=== PATIENT | female | born 1970 | race Caucasian/White ===

== ENCOUNTER 2016-09-15 21:45 | Emergency (ER) | payer OTHER ==
[~2016-09-15] VITALS: Ht 170.2 cm; Wt 81.6 kg
[~2016-09-15 21:45] MED LIST: CETI10TA22 PO; HYDR-2666 PO; IBUP200T43 PO; NAPR500T8 PO
[2016-09-15 21:54] VITALS: BP 143/82
--- NOTE | 2016-09-15 22:03 | PHYS DOC ---
General Chief Complaint: EARACHE/EAR PAIN Stated Complaint: EARACHE Time Seen by MD: 21:47 Source: patient Exam Limitations: no limitations Problems: History of Present Illness Initial Comments Pt is 46/F to ED c/o L ear pain. Pt states L ear pain x few days. She's had popping, muffled hearing, no drainage. Pain described as pressure, moderate, no fever/chills/dizziness/ tinnitus. Taking OTC meds for allergies, has had increase nasal drainage/ congestion and scratchy throat. No fever/chills/diaphoresis/myalgias/neck stiffness/CONTRERAS/focal weakness. OTC not helping. Timing/Duration: gradual, other Severity: moderate Location: ear (R) Prearrival Treatment: over the counter meds Modifying Factors: worse with coughing, improves with rest Associated Symptoms: change in hearing, cough, nasal congestion/drainage Allergies: Coded Allergies: bee venom (honey bee) (Verified Allergy, Severe, SOA, Dizziness, 03/30/14) Past Medical History Medical History: allergies Surgical History: noncontributory, appendectomy, cholecystectomy, tonsillectomy , other Family History Significant Family History: no pertinent family hx Social History Smoker: cigarettes Alcohol: occasionally Drugs: none Constitutional: denies chills, denies fever Ears: see HPI Nose: see HPI congestiondenies epistaxis Throat: see HPIdenies neck stiffness, denies hoarse, denies painful swallowing Respiratory: coughdenies shortness of breath, denies wheezing Cardiovascular: denies chest pain, denies palpitations, denies syncope Gastrointestinal: denies abdominal pain, denies nausea, denies vomiting Physical Exam General Appearance: WD/WN, no apparent distress Eyes: bilateral eye EOMI, bilateral eye PERRL, bilateral eye normal inspection Ears: right ear TM normal, right ear canal normal, left ear other (L canal erythema and pain w/auricular movement, TM w/serous fluid no erythema R ear normal), bilateral ear auricle normal Mouth/Throat: normal mouth inspection, other (clear PND) Neck: non-tender, supple Cardiovascular/Respiratory: normal peripheral pulses, no respiratory distress Neurologic/Psychiatric: plate grainer II-XII nml as tested, no motor/sensory deficits, alert, normal mood/affect, oriented x 3 Skin: normal color, warm/dry Departure Time of Disposition: 22:01 Disposition: 01 HOME, SELF-CARE Diagnosis: L serous otitis media, L external otitis media Condition: GOOD Patient Instructions: Otitis Externa, [id number]-mg-Lsof, Serous Otitis Media, Smoking Cessation Additional Instructions: Stop smoking, seek medical assistance if necessary. Continue current meds. OTC tylenol as needed. Rx: prednisone, floxin otic, take as directed. Follow up with your doctor in 7-10 days for recheck. Return to ED with new or changing symptoms. WALTER PALACIOS DO Sep 15, 2016 22:03
[2016-09-15] MEDS ORDERED: PRED20TA PO (22:05)
[2016-09-15] MEDS ORDERED: OFLO10DR21 AS (22:05)
[2016-09-15] MEDS ORDERED: OFLOXACIN 0.3% OTIC SOLUTION 5ML BOTTLE. AS ONE (22:15)
[2016-09-15] MEDS ORDERED: PREDNISONE 20 MG TABLET PO ONE (22:15)
== END 2016-09-15 22:15 | disposition home or self-care (01) ==
LOC: ER 21:45
DX: H65.92 Unspecified nonsuppurative otitis media, left ear (principal); H60.8X2 Other otitis externa, left ear; F17.210 Nicotine dependence, cigarettes, uncomplicated; R09.81 Nasal congestion; Z91.030 Bee allergy status
CPT/HCPCS: 99283; J7512

== ENCOUNTER 2016-11-25 08:37 | Emergency (ER) | payer OTHER ==
[~2016-11-25 08:37] MED LIST changes: -HYDR-2666 PO; +HYDR-2758 PO; +OFLO10DR21 AS; +PRED20TA PO
--- NOTE | 2016-11-25 09:20 | RAD ---
Left ankle, 3 views, 11/25/2016: History: Injury, pain No fracture or dislocation is identified. There is mild soft tissue swelling. IMPRESSION: No acute bony abnormality is detected.
--- NOTE | 2016-11-25 09:21 | RAD ---
Left foot, 3 views, 11/25/2016: History: Injury, pain No fracture or dislocation is identified. There is mild subcutaneous edema. IMPRESSION: No acute bony abnormality is detected.
--- NOTE | 2016-11-25 09:40 | PHYS DOC ---
General Chief Complaint: ANKLE PROBLEM Stated Complaint: FOOT INJURY Time Seen by MD: 08:53 Source: patient Exam Limitations: no limitations Problems: History of Present Illness Initial Comments Pt is 46/F to ED c/o left foot/ankle pain. Pt states yesterday afternoon stepped "wrong" and left ankle twisted inversion mechanism. Pt with h/o L knee surgery, tried to avoid twisting her knee successfully and fell to flexed right knee causing abrasion. No care sough for abrasion, pt c/o left lateral ankle pain. Able to walk with discomfort, OTC meds helping but wants to r/o fx. No other injury from fall, no numbness/tingling/weakness/radiating sx. Onset: yesterday Severity: moderate Pain/Injury Location: left foot, left ankle Method of Injury: twisted Modifying Factors: worse with jarring, worse with movement, improves with rest Allergies: Coded Allergies: bee venom (honey bee) (Verified Allergy, Severe, SOA, Dizziness, 03/30/14) Past Medical History Medical History: arthritis Surgical History: noncontributory, appendectomy, cholecystectomy, tonsillectomy , other Family History Significant Family History: no pertinent family hx Social History Smoker: cigarettes Alcohol: occasionally Drugs: none Review of Systems Constitutional: denies chills, denies fever Respiratory: denies cough, denies orthopnea Cardiovascular: denies chest pain, denies palpitations Gastrointestinal: denies nausea, denies vomiting Musculoskeletal: see HPI Skin: denies change in color, denies dryness, denies lesions Psychiatric/Neurological: see HPI Physical Exam General Appearance: WD/WN, no apparent distress HEENT: normal ENT inspection Neck: non-tender, supple Cardiovascular/Respiratory: normal peripheral pulses, no respiratory distress Knees: bilateral knee non-tender, bilateral knee normal inspection (scar L knee c/w history, small R knee abrasion scabbed), bilateral knee normal range of motion, bilateral knee no evidence of injury Ankles: left ankle limited range of motion, left ankle pain, left ankle soft tissue tenderness Feet: left foot limited range of motion, left foot pain, left foot soft tissue tenderness Neurologic/Tendon: normal sensation, normal motor functions, normal tendon functions, responds to pain, no evidence tendon injury Psychiatric: alert, oriented x 3 Skin: normal color, warm/dry Orders, Labs, Meds L Foot, L Ankle: Images reviewed by me, no acute osseous abnormality. NV after splint placed. Departure: Impression: Primary Impression: Ankle sprain Disposition: HOME, SELF-CARE Condition: GOOD Patient Instructions: VIOLET - Routine Care for Injuries, [id number] Additional Instructions: VIOLET, see handout. NWB Crutches only until cleared by your doctor. Wear splint as needed. OTC tylenol/ibuprofen as needed. Off work thru 11/27. Follow up at [facility] or for recheck. Return to ED with new or changing symptoms. Departure Time of Disposition: 09:37 Diagnosis: Left lateral ankle sprain WALTER PALACIOS DO November 25, 2016 09:40
[2016-11-25 09:55] VITALS: BP 141/91
== END 2016-11-25 09:55 | disposition home or self-care (01) ==
LOC: ER 08:37
DX: S93.402A Sprain of unspecified ligament of left ankle, initial encounter (principal); M19.90 Unspecified osteoarthritis, unspecified site; F17.210 Nicotine dependence, cigarettes, uncomplicated; Z91.030 Bee allergy status; X50.9XXA Other and unspecified overexertion or strenuous movements or postures, initial encounter; Y93.89 Activity, other specified; Y99.8 Other external cause status; Y92.89 Other specified places as the place of occurrence of the external cause
CPT/HCPCS: 29515; 73610; 73630; 99284-25

== ENCOUNTER → 2019-05-22 | Outpatient (CLI) | payer OTHER ==
[~2019-05-22] MED LIST changes: +HYDR-2155 PO; -HYDR-2758 PO; -IBUP200T43 PO; +IBUP200T44 PO
--- NOTE | 2019-05-22 15:20 | RAD ---
SMALL BOWEL SERIES 05/22/2019. Reason for study: Ulcerative colitis. Comparison studies: None. Technique: Preliminary dry kiln feeder film of the abdomen was obtained. Then following ingestion of oral barium, serial images of the abdomen were obtained to assess progress of contrast throughout the small bowel. Once the contrast reached the colon, bilateral oblique views were obtained the better assess the terminal ileum. Findings: Cholecystectomy changes are present. Transit time through the small bowel is normal. No evidence for bowel obstruction or dilatation. Jejunal and ileal fold patterns are normal with no evidence for inflammatory bowel disease. The terminal ileum was unremarkable. Few colonic diverticula are present. IMPRESSION: No bowel obstruction or inflammation visualized. There is persistent clinical concern, further evaluation with CT enterography may be of benefit. Few mild colonic diverticula. Electronically signed by: Gissell Guthrie MD (05/22/2019 3:17 PM) [id number]
== END | disposition home or self-care (01) ==
LOC: RAD 08:31
PROVIDERS: ATTEND Internal Medicine Gastroenterology
DX: K57.30 Diverticulosis of large intestine without perforation or abscess without bleeding (principal); K51.90 Ulcerative colitis, unspecified, without complications; Z90.49 Acquired absence of other specified parts of digestive tract
CPT/HCPCS: 74250

== ENCOUNTER 2019-11-22 23:53 | Emergency (ER) | payer OTHER ==
[~2019-11-22] VITALS: Ht 170.2 cm; Wt 84.0 kg
[2019-11-22 23:53] VITALS: BP 128/85
[~2019-11-22 23:53] MED LIST changes: -CETI10TA22 PO; +CETI10TA24 PO
[2019-11-23] MEDS ORDERED: CLIN300C8 PO (00:09)
[2019-11-23] MEDS ORDERED: PRED20TA PO (00:09)
--- NOTE | 2019-11-23 00:09 | PHYS DOC ---
Past History Past Medical History: Arthritis Past Surgical History: Appendectomy, Cholecystectomy, Hysterectomy, Tonsillectomy, Other Smoking: Cigarettes, Less than 1pk/day Alcohol Use: Occasionally Drug Use: None General Adult EDM: Chief Complaint: INSECT BITE HPI: HPI: 49-year-old female presents with report of 3-day history of progressive swelling and redness to insect bite to left anterior forearm. Patient reports initially felt like she was bit by a "small styles gnat ". Patient subsequently put a [employer] [place] around the swelling this morning but tonight it has progressed. Reports she was previously prescribed Keflex and has thus far taken 2 doses. Denies fever or chills. Reports some clear discharge from wound. Patient does report having allergy to insect bites and stings. Denies airway compromise. Review of Systems: Review of Systems: Constitutional: Denies fever or chills Eyes: Denies redness or eye pain HENT: Denies nasal congestion or sore throat Respiratory: Denies cough or shortness of breath Cardiovascular: Denies chest pain or palpitations GI: Denies abdominal pain, nausea, or vomiting : Denies dysuria or hematuria Musculoskeletal: Denies back pain or joint pain Integument: Reports redness and swelling to right forearm Neurologic: Denies headache, focal weakness or sensory changes Complete systems were reviewed and found to be within normal limits, except as documented in this note. Allergies: Allergies: Allergies Coded Allergies Type Severity Reaction Last Updated Verified bee venom (honey bee) Allergy Severe SOA, Dizziness 03/30/14 Yes Physical Exam: PE: Constitutional: Well developed, well nourished, no acute distress, non-toxic appearance HENT: Normocephalic, atraumatic Eyes:Conjunctiva normal, no discharge Neck: Normal range of motion, no tenderness, supple Cardiovascular: Left radial pulse +2, cap refill less than 2 seconds on right hand Lungs & Thorax: No respiratory distress, equal chest rise and fall Skin: Warm, dry, no erythema, no rash, lesion as avof Extremities: Left anterior forearm with tenderness and induration to wound on anterior aspect with surrounding erythema Neurologic: Alert and oriented X 3, no focal deficits noted Psychologic: Affect normal, judgment normal EKG: EKG: [] Radiology/Procedures: Radiology/Procedures: [] Course & Med Decision Making: Course & Med Decision Making Patient presents with insect bite to left anterior forearm with surrounding erythema and central induration. Tetanus up-to-date. Afebrile. Empiric anti biotic initiated to replace previously prescribed Keflex. Wound cleaned and dressed. Patient stable for discharge with outpatient follow-up with PCP. Discussed findings and plan with patient, who acknowledges understanding and agreement. Bernie Disclaimer: Bernie Disclaimer: This electronic medical record was generated, in whole or in part, using a voice recognition dictation system. Departure Departure: Impression: Primary Impression: Insect bite Qualified Codes: S50.862D - Insect bite (nonvenomous) of left forearm, subsequent encounter; W57.XXXD - Bitten or stung by nonvenomous insect and other nonvenomous arthropods, subsequent encounter Disposition: HOME/RESIDENCE PRIOR TO ADM Condition: STABLE Referrals: TIRSO SCRUGGS (PCP) Patient Instructions: Insect Bite, [id number] Additional Instructions: Do not soak your wound. You may shower. Clean wound daily with soap and water. Change dressing 2 times daily. Use over the counter antibiotic ointment with each dressing change. Scripts Clindamycin Hcl (CLINDAMYCIN HCL) 300 Mg Capsule 1 CAP PO TID for infection for 7 Days, #21 CAP Prov: SANDEEP ROMANO DO 11/23/19 Prednisone (PREDNISONE) 20 Mg Tablet 2 TAB PO DAILY for Insect bite, #8 TAB Prov: SANDEEP ROMANO DO 11/23/19 SANDEEP ROMANO DO November 23, 2019 00:09
[2019-11-23] MEDS ORDERED: DEXAMETHASONE 4 MG TABLET PO ONE (00:15)
[2019-11-23] MEDS ORDERED: NEOMY/BACITR/POLYMYXIN OINT PACKET. TP ONE (00:15)
[2019-11-23] MEDS ORDERED: CLINDAMYCIN HCL 150 MG CAPSULE PO ONE (00:15)
== END 2019-11-23 00:15 | disposition home or self-care (01) ==
LOC: ER 23:53
DX: S50.862A Insect bite (nonvenomous) of left forearm, initial encounter (principal); M19.90 Unspecified osteoarthritis, unspecified site; F17.210 Nicotine dependence, cigarettes, uncomplicated; Z91.030 Bee allergy status; W57.XXXA Bitten or stung by nonvenomous insect and other nonvenomous arthropods, initial encounter; Y93.89 Activity, other specified; Y92.89 Other specified places as the place of occurrence of the external cause; Y99.8 Other external cause status
CPT/HCPCS: 99284; J8540

== ENCOUNTER 2020-02-17 19:04 | Emergency (ER) | payer OTHER ==
[~2020-02-17] VITALS: Ht 170.2 cm; Wt 86.6 kg
[~2020-02-17 19:04] MED LIST changes: +CLIN300C8 PO
[2020-02-17 19:25] VITALS: BP 142/86
[2020-02-17] MEDS ORDERED: KETOROLAC 60 MG/2 ML VIAL. IM ONE (19:30)
[2020-02-17 19:55] LABS: BILIRUBIN,URINE NEG (NEG); CLARITY,URINE CLEAR; COLOR,URINE YELLOW; GLUCOSE,URINE NEG (NEG)
[2020-02-17 19:56] LABS: BACTERIA,URINE 0 /HPF (0-FEW); NITRITE,URINE NEG (NEG); RBC,URINE OCC /HPF (0-2); SQUAMOUS EPITHELIAL CELL,UR FEW /LPF; UROBILINOGEN,URINE 0.2 mg/dL (0.2 mg/dL); WBC,URINE OCC /HPF (0-4)
--- NOTE | 2020-02-17 19:59 | RAD ---
CT scan of the lumbar spine without contrast 02/17/2020 CLINICAL HISTORY: Low back pain. Left leg numbness. TECHNIQUE: Unenhanced, contiguous, 0.625 mm axial sections were obtained through the lumbar spine. 3 mm reconstructed sagittal, axial and coronal images were obtained. One or more of the following individualized dose reduction techniques were utilized for this study: 1. Automated exposure control. 2. Adjustment of the mA and/or kV according to patient size. 3. Use of iterative reconstruction technique. FINDINGS: Sagittal and coronal reconstructed images demonstrate very mild S-shaped curvature of the thoracolumbar spine. Degenerative changes consisting of varying degrees of disc space narrowing, vertebral endplate sclerosis and minimal to mild anterior and posterior vertebral body osteophyte formation are seen. No fracture or subluxation of the lumbar vertebrae is noted. On the axial images throughout the lumbar disc spaces the changes of degenerative disc disease are seen. These consist of mild to moderate generalized disc bulges, degenerative changes involving the facet joints and mild to moderate ligamentum flavum hypertrophy. These findings when combined result in mild central spinal canal stenosis at L2-3 and L4-5. Mild to moderate central spinal canal stenosis is seen at L3-4. Mild bilateral neural foraminal stenosis is seen at L2-3 and L4-5. IMPRESSION: The changes of degenerative disc disease are seen throughout the lumbar spine. These findings result in mild central spinal canal stenosis with mild bilateral neural foraminal stenosis at L2-3 and L4-5 and mild to moderate central spinal canal stenosis at L3-4. No acute osseous abnormality is seen. Electronically signed by: Soham Wiggins MD (02/17/2020 7:56 PM) [id number]
[2020-02-17] MEDS ORDERED: TRAM50TA PO (20:43)
--- NOTE | 2020-02-17 20:43 | PHYS DOC ---
Past History Past Medical History: Arthritis Past Surgical History: Appendectomy, Cholecystectomy, , Hysterectomy, Knee Replacement, Tonsillectomy, Other Additional Past Surgical Histo: hip, knee surgeries, carpal tunnel raymundo, tummy tuck, lt knee replaced x2 Smoking: Cigarettes, Less than 1pk/day Alcohol Use: Occasionally Drug Use: None General Adult EDM: Chief Complaint: OTHER COMPLAINTS HPI: HPI: Patient is a 49 year old female who presents for evaluation of left leg pain and numbness. She also felt some paresthesia "prickly sensation" in that leg as well. She states she has a "nerve problem" that starts in her back and radiates down her leg. Patient was complaining of symptoms progressing over the past 4 days. Patient denies any injury or trauma. Patient has history of chronic osteoarthritis. Patient has had similar symptoms but not as severe in the past. Patient denied loss of bowel bladder control, footdrop or saddle anesthesia Review of Systems: Review of Systems: Constitutional: Denies fever or chills Eyes: Denies change in visual acuity HENT: Denies nasal congestion or sore throat Respiratory: Denies cough or shortness of breath Cardiovascular: Denies chest pain or edema GI: Denies abdominal pain, nausea, vomiting, bloody stools or diarrhea : Denies dysuria Musculoskeletal: lower back pain no joint pain Integument: Denies rash Neurologic: Denies headache, focal weakness or sensory changes Endocrine: Denies polyuria or polydipsia Lymphatic: Denies swollen glands Psychiatric: Denies depression or anxiety Heart Score: Risk Factors: Risk Factors: DM, Current or recent (<one month) smoker, HTN, HLP, family history of CAD, obesity. Risk Scores: Score 0 - 3: 2.5% MACE over next 6 weeks - Discharge Home Score 4 - 6: 20.3% MACE over next 6 weeks - Admit for Clinical Observation Score 7 - 10: 72.7% MACE over next 6 weeks - Early Invasive Strategies Current Medications: Current Meds: Current Medications Medications (Trade) Dose Ordered Sig/Maya Start Time Stop Time Status Last Admin Dose Admin Ketorolac Tromethamine (Toradol Im) 30 mg 1X ONCE 02/17/20 19:30 02/17/20 19:31 DC Allergies: Allergies: Allergies Coded Allergies Type Severity Reaction Last Updated Verified venom-honey bee Allergy Severe SOA, Dizziness 02/17/20 Yes Physical Exam: PE: Constitutional: Well developed, well nourished, mild acute distress, non-toxic appearance. [] HENT: Normocephalic, atraumatic, bilateral external ears normal, oropharynx moist, no oral exudates, nose normal. [] Eyes: PERRL, EOMI, conjunctiva normal. [] Neck: Normal range of motion, no tenderness, supple, no stridor. [] Cardiovascular:Heart rate regular rhythm, no murmur [] Lungs & Thorax: Bilateral breath sounds clear to auscultation [] Abdomen: Bowel sounds normal, soft, no tenderness. [] Skin: Warm, dry, no erythema, no rash. [] Back: paraspinal tenderness low back, no CVA tenderness. [] Extremities: mild left lateral leg tenderness, no cyanosis, no clubbing, ROM intact, no edema, no calf tenderness. [] Neurologic: Alert and oriented X 3, normal motor function, normal sensory function, no focal deficits noted, no hyperreflexia lower extremities [] Psychologic: Affect normal, judgement normal, mood normal. [] Current Patient Data: Labs: Laboratory Tests Test 02/17/20 19:28 Urine Collection Type Void Urine Color Yellow Urine Clarity Clear Urine pH 7.0 Urine Specific [place] 1.020 Urine Protein Neg (NEG-TRACE) Urine Glucose (UA) Neg mg/dL (NEG) Urine Ketones (Stick) Neg mg/dL (NEG) Urine Blood Neg (NEG) Urine Nitrite Neg (NEG) Urine Bilirubin Neg (NEG) Urine Urobilinogen Dipstick 0.2 mg/dL (0.2 mg/dL) Urine Leukocyte Esterase Neg (NEG) Urine RBC Occ /HPF (0-2) Urine WBC Occ /HPF (0-4) Urine Squamous Epithelial Cells Few /LPF Urine Bacteria 0 /HPF (0-FEW) Vital Signs: Vital Signs Date Time Temp Pulse Resp B/P (MAP) Pulse Ox O2 Delivery O2 Flow Rate FiO2 02/17/20 19:25 98.0 89 18 142/86 (104) 97 Room Air EKG: EKG: [] Radiology/Procedures: Radiology/Procedures: [[address] [address] IMAGING REPORT Signed PATIENT: TAWANA DIEHL ACCOUNT: [id number] : 1970 LOCATION: ER AGE: 49 SEX: F EXAM STATUS: REG ER ORD. PHYSICIAN: MARBIN DUBON DO REASON: low back pain, left leg numbness/pain PROCEDURE: CT LUMBAR SPINE WO CONTRAST CT scan of the lumbar spine without contrast 02/17/2020 CLINICAL HISTORY: Low back pain. Left leg numbness. TECHNIQUE: Unenhanced, contiguous, 0.625 mm axial sections were obtained through the lumbar spine. 3 mm reconstructed sagittal, axial and coronal images were obtained. One or more of the following individualized dose reduction techniques were utilized for this study: 1. Automated exposure control. 2. Adjustment of the mA and/or kV according to patient size. 3. Use of iterative reconstruction technique. FINDINGS: Sagittal and coronal reconstructed images demonstrate very mild S-shaped curvature of the thoracolumbar spine. Degenerative changes consisting of varying degrees of disc space narrowing, vertebral endplate sclerosis and minimal to mild anterior and posterior vertebral body osteophyte formation are seen. No fracture or subluxation of the lumbar vertebrae is noted. On the axial images throughout the lumbar disc spaces the changes of degenerative disc disease are seen. These consist of mild to moderate generalized disc bulges, degenerative changes involving the facet joints and mild to moderate ligamentum flavum hypertrophy. These findings when combined result in mild central spinal canal stenosis at L2-3 and L4-5. Mild to moderate central spinal canal stenosis is seen at L3-4. Mild bilateral neural foraminal stenosis is seen at L2-3 and L4-5. IMPRESSION: The changes of degenerative disc disease are seen throughout the lumbar spine. These findings result in mild central spinal canal stenosis with mild bilateral neural foraminal stenosis at L2-3 and L4-5 and mild to moderate central spinal canal stenosis at L3-4. No acute osseous abnormality is seen. Electronically signed by: Soham Wiggins MD (02/17/2020 7:56 PM) [id number] DICTATED AND SIGNED BY: SOHAM WIGGINS MD DATE: 02/17/201955 CC: TIRSO SCRUGGS; MARBIN DUBON DO ~ ] Course & Med Decision Making: Course & Med Decision Making Pertinent Labs and Imaging studies reviewed. (See chart for details) [] Dragon Disclaimer: Dragon Disclaimer: This electronic medical record was generated, in whole or in part, using a voice recognition dictation system. 2034 stable, feeling better at this time. Patient already taking ibuprofen. Will add limited number of tramadol pills. Patient has degenerative changes noted to her CT scan lumbar spine. There is no evidence of a cauda equina syndrome at this time. Patient does not have any loss of bowel bladder control, footdrop or saddle anesthesia. Patient has a steady gait. She was advised to see her doctor right away she may need physical therapy regarding her back. She may need more advanced imaging studies such as an MRI Departure Departure: Impression: Primary Impression: Sciatica of left side associated with disorder of lumbosacral spine Disposition: HOME/RESIDENCE PRIOR TO ADM Condition: STABLE Referrals: TIRSO SCRUGGS (PCP) Patient Instructions: Back Pain, Adult, Sciatica Additional Instructions: Rest, no heavy lifting, medication as directed, call and see your doctor right away and follow, return if worsen Scripts Tramadol Hcl (TRAMADOL HCL) 50 Mg Tablet 50 MG PO PRN Q6HRS PRN for PAIN, #14 TAB Prov: MARBIN DUBON DO 02/17/20 Justification of Admission: Justification of Admission: Justification of Admission Dx: N/A MARBIN DUBON DO Feb 17, 2020 20:43
[2020-02-17] MEDS ORDERED: START PACK - traMADol 1 STARTPACK TABLET PO ONE ×2 (21:05→21:30)
== END 2020-02-17 21:15 | disposition home or self-care (01) ==
LOC: ER 19:04
DX: M54.42 Lumbago with sciatica, left side (principal); M51.36 Other intervertebral disc degeneration, lumbar region; M19.90 Unspecified osteoarthritis, unspecified site; F17.210 Nicotine dependence, cigarettes, uncomplicated; Z90.89 Acquired absence of other organs; Z90.49 Acquired absence of other specified parts of digestive tract; Z98.890 Other specified postprocedural states; Z90.710 Acquired absence of both cervix and uterus; Z91.030 Bee allergy status
CPT/HCPCS: 72131; 81001; 96372; 99284; J1885

== ENCOUNTER 2020-03-30 19:24 | Emergency (ER) | payer OTHER ==
[~2020-03-30] VITALS: Ht 170.2 cm; Wt 84.7 kg
[~2020-03-30 19:24] MED LIST changes: -CETI10TA24 PO; +CETI10TA74 PO; +TRAM50TA PO
[2020-03-30] MEDS ORDERED: ONDANSETRON PF 4 MG/2 ML VIAL. IVP ONE (20:00)
[2020-03-30] MEDS ORDERED: IV NORMAL SALINE 1,000ML 1,000 ML IV ONE (20:00)
[2020-03-30 20:34] LABS: BASO % 1 % (0-3); EOS # 0.2 x10^3/uL (0.0-0.7); EOS % 2 % (0-3); HEMATOCRIT 40.1 % (36.0-47.0); HEMOGLOBIN 13.7 g/dL (12.0-15.5); LYMPH # 2.5 x10^3/uL (1.0-4.8); LYMPH % 38 % (24-48); MEAN CORPUSCULAR HEMOGLOBIN 33 pg (25-35); MEAN CORPUSCULAR HGB CONC 34 g/dL (31-37); MEAN CORPUSCULAR VOLUME 96 fL (79-100); MONO # 0.4 x10^3/uL (0.0-1.1); MONO % 6 % (0-9); NEUT # 3.4 x10^3uL (1.8-7.7); NEUT % 53 % (31-73); PLATELET COUNT 210 x10^3/uL (140-400); RED BLOOD COUNT 4.17 x10^6/uL (3.50-5.40); WHITE BLOOD COUNT 6.5 x10^3/uL (4.0-11.0)
[2020-03-30 20:43] LABS: CALCIUM 9.4 mg/dL (8.5-10.1); CREATININE 0.9 mg/dL (0.6-1.0); GFR 66.5; POTASSIUM 3.3 mmol/L (3.5-5.1)
[2020-03-30 20:52] LABS: ALBUMIN 3.7 g/dL (3.4-5.0); TOTAL BILIRUBIN 0.5 mg/dL (0.2-1.0); TOTAL PROTEIN 7.3 g/dL (6.4-8.2)
[2020-03-30 21:30] LABS: BACTERIA,URINE FEW /HPF (0-FEW); BILIRUBIN,URINE NEG (NEG); CLARITY,URINE HAZY; COLOR,URINE YELLOW; GLUCOSE,URINE NEG (NEG); NITRITE,URINE NEG (NEG); RBC,URINE RARE /HPF (0-2); UROBILINOGEN,URINE 0.2 mg/dL (0.2 mg/dL); WBC,URINE OCC /HPF (0-4)
[2020-03-30] MEDS ORDERED: POTASSIUM CHLORIDE 10 MEQ TABLET.ER. PO ONE (21:30)
[2020-03-30] MEDS ORDERED: CONTRAST GIVEN. MC PRN (21:30)
[2020-03-30 21:31] LABS: SQUAMOUS EPITHELIAL CELL,UR FEW /LPF
[2020-03-30] MEDS ORDERED: IOHEXOL 300 MG/ML 75 ML VIAL. IV ONE (22:00)
--- NOTE | 2020-03-30 22:08 | RAD ---
Exam: CT of abdomen and pelvis with contrast INDICATION: Abdominal pain TECHNIQUE: Sequential axial images through the abdomen and pelvis obtained following the administration of 74 mL of Isovue-370 IV contrast. Sagittal and coronal reformatted images were reconstructed from the axial data and reviewed. Comparisons: None FINDINGS: Heart size is normal. No pericardial effusion. Visualized lung bases are clear. No pleural effusion. Liver, spleen, pancreas, and adrenals are unremarkable. Gallbladder surgically absent. No perinephric inflammation or hydronephrosis. No renal or ureteral calculi. Bladder is decompressed not well evaluated. Uterus is absent. No abnormal adnexal mass. Large and small bowel are unremarkable. Appendix is nonidentified. No free intra-abdominal air or fluid. No obstruction. Abdominal aorta has a normal course and caliber. Abdominal vasculature is patent. No enlarged intra-abdominal lymph nodes are identified. No suspicious osseous lesions or acute fractures IMPRESSION: No acute process identified within the abdomen or pelvis. Exposure: One or more of the following in the visualized dose reduction techniques were utilized for this examination: 1. Automated exposure control 2. Adjustment of the MA and/or KV according to patient size 3. Use of iterative of reconstructive technique Electronically signed by: Amalia Garcia MD (03/30/2020 10:05 PM) [id number]
--- NOTE | 2020-03-30 22:20 | PHYS DOC ---
Past History Past Medical History: Arthritis, Other Additional Past Medical Histor: ulcerative colitis Past Surgical History: Appendectomy, Cholecystectomy, , Hysterectomy, Knee Replacement, Tonsillectomy, Other Additional Past Surgical Histo: hip, knee surgeries, carpal tunnel raymundo, tummy tuck, lt knee replaced x2 Smoking: Cigarettes, Less than 1pk/day Alcohol Use: Occasionally Drug Use: None General Adult EDM: Chief Complaint: DIARRHEA HPI: HPI: Patient is a 49-year-old female who presented to ER today for evaluation of nausea vomiting diarrhea and abdominal pain for a week. Patient has history of ulcerative colitis, had a normal colonoscopy 2 years ago. Patient denies any fever, no cough, no chest pain, no sore throat, no nasal congestion. 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 Review of Systems: Review of Systems: Constitutional: Denies fever or chills Eyes: Denies change in visual acuity HENT: Denies nasal congestion or sore throat Respiratory: Denies cough or shortness of breath Cardiovascular: Denies chest pain or edema GI: Positive for abdominal pain, nausea vomiting, diarrhea. : Denies dysuria Musculoskeletal: Denies back pain or joint pain Integument: Denies rash Neurologic: Denies headache, focal weakness or sensory changes Endocrine: Denies polyuria or polydipsia Lymphatic: Denies swollen glands Psychiatric: Denies depression or anxiety Heart Score: Risk Factors: Risk Factors: DM, Current or recent (<one month) smoker, HTN, HLP, family history of CAD, obesity. Risk Scores: Score 0 - 3: 2.5% MACE over next 6 weeks - Discharge Home Score 4 - 6: 20.3% MACE over next 6 weeks - Admit for Clinical Observation Score 7 - 10: 72.7% MACE over next 6 weeks - Early Invasive Strategies Current Medications: Current Meds: Current Medications Medications (Trade) Dose Ordered Sig/Maya Start Time Stop Time Status Last Admin Dose Admin Info (Do NOT chart on this entry -- for MONITORING) 1 each PRN DAILY PRN 03/30/20 21:30 04/01/20 21:29 Iohexol (Omnipaque 300 Mg/ml) 75 ml 1X ONCE 03/30/20 22:00 03/30/20 22:01 DC 03/30/20 21:37 75 ML Ondansetron HCl (Zofran) 4 mg 1X ONCE 03/30/20 20:00 03/30/20 20:01 DC 03/30/20 20:17 4 MG Potassium Chloride (Klor-Con) 40 meq 1X ONCE 03/30/20 21:30 03/30/20 21:31 DC 03/30/20 21:18 40 MEQ Sodium Chloride 1,000 ml @ 1,000 mls/hr 1X ONCE 03/30/20 20:00 03/30/20 20:59 DC 03/30/20 20:17 1,000 MLS/HR Allergies: Allergies: Allergies Coded Allergies Type Severity Reaction Last Updated Verified venom-honey bee Allergy Severe SOA, Dizziness 02/17/20 Yes Physical Exam: PE: Constitutional: Well developed, well nourished, no acute distress, non-toxic appearance. [] HENT: Normocephalic, atraumatic, bilateral external ears normal, oropharynx moist, no oral exudates, nose normal. [] Eyes: PERRLA, EOMI, conjunctiva normal, no discharge. [] Neck: Normal range of motion, no tenderness, supple, no stridor. [] Cardiovascular:Heart rate regular rhythm, no murmur [] Lungs & Thorax: Bilateral breath sounds clear to auscultation [] Abdomen: Bowel sounds normal, soft, no tenderness, no masses, no pulsatile masses. [] Skin: Warm, dry, no erythema, no rash. [] Back: No tenderness, no CVA tenderness. [] Extremities: No tenderness, no cyanosis, no clubbing, ROM intact, no edema. [] Neurologic: Alert and oriented X 3, normal motor function, normal sensory function, no focal deficits noted. [] Psychologic: Affect normal, judgement normal, mood normal. [] Current Patient Data: Labs: Laboratory Tests Test 03/30/20 20:05 03/30/20 21:05 White Blood Count 6.5 x10^3/uL (4.0-11.0) Red Blood Count 4.17 x10^6/uL (3.50-5.40) Hemoglobin 13.7 g/dL (12.0-15.5) Hematocrit 40.1 % (36.0-47.0) Mean Corpuscular Volume 96 fL (79-100) Mean Corpuscular Hemoglobin 33 pg (25-35) Mean Corpuscular Hemoglobin Concent 34 g/dL (31-37) Red Cell Distribution Width 13.0 % (11.5-14.5) Platelet Count 210 x10^3/uL (140-400) Neutrophils (%) (Auto) 53 % (31-73) Lymphocytes (%) (Auto) 38 % (24-48) Monocytes (%) (Auto) 6 % (0-9) Eosinophils (%) (Auto) 2 % (0-3) Basophils (%) (Auto) 1 % (0-3) Neutrophils # (Auto) 3.4 x10^3uL (1.8-7.7) Lymphocytes # (Auto) 2.5 x10^3/uL (1.0-4.8) Monocytes # (Auto) 0.4 x10^3/uL (0.0-1.1) Eosinophils # (Auto) 0.2 x10^3/uL (0.0-0.7) Basophils # (Auto) 0.0 x10^3/uL (0.0-0.2) Sodium Level 141 mmol/L (136-145) Potassium Level 3.3 mmol/L (3.5-5.1) L Chloride Level 105 mmol/L (98-107) Carbon Dioxide Level 25 mmol/L (21-32) Anion Gap 11 (6-14) Blood Urea Nitrogen 11 mg/dL (7-20) Creatinine 0.9 mg/dL (0.6-1.0) Estimated GFR (Cockcroft-Gault) 66.5 BUN/Creatinine Ratio 12 (6-20) Glucose Level 102 mg/dL (70-99) H Calcium Level 9.4 mg/dL (8.5-10.1) Total Bilirubin 0.5 mg/dL (0.2-1.0) Aspartate Amino Transferase (AST) 11 U/L (15-37) L Alanine Aminotransferase (ALT) 26 U/L (14-59) Alkaline Phosphatase 90 U/L (46-116) Total Protein 7.3 g/dL (6.4-8.2) Albumin 3.7 g/dL (3.4-5.0) Albumin/Globulin Ratio 1.0 (1.0-1.7) Urine Collection Type Unknown Urine Color Yellow Urine Clarity Hazy Urine pH 5.5 Urine Specific [place] >=1.030 Urine Protein Neg (NEG-TRACE) Urine Glucose (UA) Neg mg/dL (NEG) Urine Ketones (Stick) Neg mg/dL (NEG) Urine Blood Neg (NEG) Urine Nitrite Neg (NEG) Urine Bilirubin Neg (NEG) Urine Urobilinogen Dipstick 0.2 mg/dL (0.2 mg/dL) Urine Leukocyte Esterase Neg (NEG) Urine RBC Rare /HPF (0-2) Urine WBC Occ /HPF (0-4) Urine Squamous Epithelial Cells Few /LPF Urine Bacteria Few /HPF (0-FEW) Urine Mucus Mod /LPF Vital Signs: Vital Signs Date Time Temp Pulse Resp B/P (MAP) Pulse Ox O2 Delivery O2 Flow Rate FiO2 03/30/20 19:24 97.8 93 18 144/90 (108) 98 Room Air EKG: EKG: [] Radiology/Procedures: Radiology/Procedures: [][address] [id number] IMAGING REPORT Signed PATIENT: TAWANA DIEHL ACCOUNT: [id number] : 1970 LOCATION: ER AGE: 49 SEX: F EXAM STATUS: REG ER ORD. PHYSICIAN: ZAIRE BASILIO DO REASON: abdominal pain, diarrhea for a week, OMNI 300, 75ml PROCEDURE: CT ABD PELV W/ IV CONTRST ONLY Exam: CT of abdomen and pelvis with contrast INDICATION: Abdominal pain TECHNIQUE: Sequential axial images through the abdomen and pelvis obtained following the administration of 74 mL of Isovue-370 IV contrast. Sagittal and coronal reformatted images were reconstructed from the axial data and reviewed. Comparisons: None FINDINGS: Heart size is normal. No pericardial effusion. Visualized lung bases are clear. No pleural effusion. Liver, spleen, pancreas, and adrenals are unremarkable. Gallbladder surgically absent. No perinephric inflammation or hydronephrosis. No renal or ureteral calculi. Bladder is decompressed not well evaluated. Uterus is absent. No abnormal adnexal mass. Large and small bowel are unremarkable. Appendix is nonidentified. No free intra-abdominal air or fluid. No obstruction. Abdominal aorta has a normal course and caliber. Abdominal vasculature is patent. No enlarged intra-abdominal lymph nodes are identified. No suspicious osseous lesions or acute fractures IMPRESSION: No acute process identified within the abdomen or pelvis. Exposure: One or more of the following in the visualized dose reduction techniques were utilized for this examination: 1. Automated exposure control 2. Adjustment of the MA and/or KV according to patient size 3. Use of iterative of reconstructive technique Electronically signed by: Amalia Oshea MD (03/30/2020 10:05 PM) [id number] DICTATED AND SIGNED BY: AMALIA OSHEA MD DATE: 03/30/202204 CC: TIRSO SCRUGGS; ZAIRE BASILIO DO ~ Course & Med Decision Making: Course & Med Decision Making Pertinent Labs and Imaging studies reviewed. (See chart for details) [] Dragon Disclaimer: DragAffinaquest Disclaimer: This electronic medical record was generated, in whole or in part, using a voice recognition dictation system. Departure Departure: Impression: Primary Impression: Diarrhea Additional Impression: Abdominal pain Disposition: HOME/RESIDENCE PRIOR TO ADM Condition: STABLE Referrals: TIRSO SCRUGGS (PCP) please follow up with your GI doctor in next week for reevaluation Patient Instructions: Abdominal Pain, Diarrhea Additional Instructions: Thank you for visiting our Emergency Department. We appreciate you trusting us with your care. If any additional problems come up don't hesitate to return to visit us. Please follow up with your primary care provider so they can plan additional care if needed and know about the problem that you had. If symptoms worsen come back to the Emergency Department. Any concerning symptoms that start such as chest pain, shortness of air, weakness or numbness on one side of the body, running high fevers or any other concerning symptoms return to the ER. Justification of Admission: Justification of Admission: Justification of Admission Dx: N/A ZAIRE BASILIO DO Mar 30, 2020 22:20
[2020-03-30 22:40] VITALS: BP 128/81
--- NOTE | 2020-04-04 15:11 | NUR ---
IP: attempt to notify patient of COVID result, unable to leave call back message. WIll send letter.
== END 2020-03-30 22:45 | disposition home or self-care (01) ==
LOC: ER 19:24
DX: R19.7 Diarrhea, unspecified (principal); R10.9 Unspecified abdominal pain; R11.2 Nausea with vomiting, unspecified; M19.90 Unspecified osteoarthritis, unspecified site; F17.210 Nicotine dependence, cigarettes, uncomplicated; Z20.828 Contact with and (suspected) exposure to other viral communicable diseases; Z90.89 Acquired absence of other organs; Z90.49 Acquired absence of other specified parts of digestive tract; Z98.890 Other specified postprocedural states; Z90.710 Acquired absence of both cervix and uterus; Z91.030 Bee allergy status
CPT/HCPCS: 36415; 74177; 80053; 81001; 85025; 96361; 96374; 99285; J2405; J7030; Q9967; U0003

== ENCOUNTER 2020-08-18 19:21 | Emergency (ER) | payer OTHER ==
[~2020-08-18] VITALS: Ht 170.2 cm; Wt 84.7 kg
[~2020-08-18 19:21] MED LIST changes: -CLIN300C8 PO; +CLIN300C9 PO
[2020-08-18] MEDS ORDERED: ONDANSETRON PF 4 MG/2 ML VIAL. IVP ONE (20:15)
[2020-08-18 20:23] LABS: BASO % 1 % (0-3); EOS # 0.2 x10^3/uL (0.0-0.7); EOS % 3 % (0-3); HEMATOCRIT 42.3 % (36.0-47.0); HEMOGLOBIN 14.3 g/dL (12.0-15.5); LYMPH # 1.9 x10^3/uL (1.0-4.8); LYMPH % 28 % (24-48); MEAN CORPUSCULAR HEMOGLOBIN 33 pg (25-35); MEAN CORPUSCULAR HGB CONC 34 g/dL (31-37); MEAN CORPUSCULAR VOLUME 98 fL (79-100); MONO # 0.4 x10^3/uL (0.0-1.1); MONO % 5 % (0-9); NEUT # 4.3 x10^3uL (1.8-7.7); NEUT % 63 % (31-73); PLATELET COUNT 205 x10^3/uL (140-400); RED BLOOD COUNT 4.34 x10^6/uL (3.50-5.40); RED CELL DISTRIBUTION WIDTH 12.8 % (11.5-14.5); WHITE BLOOD COUNT 6.9 x10^3/uL (4.0-11.0)
--- NOTE | 2020-08-18 20:30 | RAD ---
XR CHEST 1V History: Reason: CP / Spl. Instructions: / History: Comparison: December 10, 2015 Findings: No consolidation or pleural effusion. Normal heart size. No pneumothorax. Impression: 1. No acute cardiopulmonary process. Electronically signed by: Edward Daniel DO (08/18/2020 8:28 PM) [facility]
[2020-08-18 20:36] LABS: ANION GAP 9 (6-14); BLOOD UREA NITROGEN 17 mg/dL (7-20); BUN/CREATININE RATIO 17 (6-20); CALCIUM 9.2 mg/dL (8.5-10.1); CARBON DIOXIDE 28 mmol/L (21-32); CHLORIDE 104 mmol/L (98-107); GFR 58.7; GLUCOSE 101 mg/dL (70-99); POTASSIUM 3.7 mmol/L (3.5-5.1); SODIUM 141 mmol/L (136-145)
--- NOTE | 2020-08-18 20:45 | PHYS DOC ---
Past History Past Medical History: Arthritis, Other Additional Past Medical Histor: ulcerative colitis (ASHELY POSADAS APRN) Past Surgical History: Appendectomy, Cholecystectomy, , Hysterectomy, Knee Replacement, Tonsillectomy, Other Additional Past Surgical Histo: hip, knee surgeries, carpal tunnel raymundo, tummy tuck, lt knee replaced x2 (ASHELY POSADAS APRN) Smoking: Cigarettes, Less than 1pk/day Alcohol Use: Occasionally Drug Use: None (ASHELY POSADAS APRN) General Adult EDM: Chief Complaint: CHEST PAIN HPI: HPI: Patient is a 50-year-old female who presents with epigastric chest pressure that started at 6 PM tonight. Patient states that she was at work standing and talking to coworkers when she started having the pain and nausea. Patient states when she got home she began vomiting. Patient states "I have been feeling a little off balance for the last couple of weeks". Patient denies shortness of breath or pain radiation. Denies taking anything at home prior to arrival. (ASHELY POSADAS APRN) Review of Systems: Review of Systems: Constitutional: Denies fever or chills Eyes: Denies change in visual acuity HENT: Denies nasal congestion or sore throat Respiratory: Denies cough or shortness of breath Cardiovascular: Reports chest pain denies edema GI: Denies abdominal pain, reports nausea and vomiting : Denies dysuria Musculoskeletal: Denies back pain or joint pain Integument: Denies rash Neurologic: Denies headache, focal weakness or sensory changes Endocrine: Denies polyuria or polydipsia Lymphatic: Denies swollen glands Psychiatric: Denies depression or anxiety (ASHELY POSADAS APRN) Current Medications: Current Meds: Current Medications Medications (Trade) Dose Ordered Sig/Maya Start Time Stop Time Status Last Admin Dose Admin Ondansetron HCl (Zofran) 4 mg 1X ONCE 08/18/20 20:15 08/18/20 20:31 DC 08/18/20 20:13 4 MG (ASHELY POSADAS APRN) Allergies: Allergies: Allergies Coded Allergies Type Severity Reaction Last Updated Verified venom-honey bee Allergy Severe SOA, Dizziness 02/17/20 Yes (ASHELY POSADAS APRN) Physical Exam: PE: Constitutional: Well developed, well nourished, no acute distress, non-toxic appearance. [] HENT: Normocephalic, atraumatic, bilateral external ears normal, oropharynx moist, no oral exudates, nose normal. [] Eyes: PERRLA, EOMI, conjunctiva normal, no discharge. [] Neck: Normal range of motion, no tenderness, supple, no stridor. [] Cardiovascular:Heart rate regular rhythm, no murmur [] Lungs & Thorax: Bilateral breath sounds clear to auscultation [] Abdomen: Bowel sounds normal, soft, no tenderness, no masses, no pulsatile masses. [] Skin: Warm, dry, no erythema, no rash. [] Back: No tenderness, no CVA tenderness. [] Extremities: No tenderness, no cyanosis, no clubbing, ROM intact, no edema. [] Neurologic: Alert and oriented X 3, normal motor function, normal sensory function, no focal deficits noted. [] Psychologic: Affect normal, judgement normal, mood normal. [] (ASHELY POSADAS APRN) Current Patient Data: Labs: Laboratory Tests Test 08/18/20 19:50 White Blood Count 6.9 x10^3/uL (4.0-11.0) Red Blood Count 4.34 x10^6/uL (3.50-5.40) Hemoglobin 14.3 g/dL (12.0-15.5) Hematocrit 42.3 % (36.0-47.0) Mean Corpuscular Volume 98 fL (79-100) Mean Corpuscular Hemoglobin 33 pg (25-35) Mean Corpuscular Hemoglobin Concent 34 g/dL (31-37) Red Cell Distribution Width 12.8 % (11.5-14.5) Platelet Count 205 x10^3/uL (140-400) Neutrophils (%) (Auto) 63 % (31-73) Lymphocytes (%) (Auto) 28 % (24-48) Monocytes (%) (Auto) 5 % (0-9) Eosinophils (%) (Auto) 3 % (0-3) Basophils (%) (Auto) 1 % (0-3) Neutrophils # (Auto) 4.3 x10^3uL (1.8-7.7) Lymphocytes # (Auto) 1.9 x10^3/uL (1.0-4.8) Monocytes # (Auto) 0.4 x10^3/uL (0.0-1.1) Eosinophils # (Auto) 0.2 x10^3/uL (0.0-0.7) Basophils # (Auto) 0.0 x10^3/uL (0.0-0.2) Vital Signs: Vital Signs Date Time Temp Pulse Resp B/P (MAP) Pulse Ox O2 Delivery O2 Flow Rate FiO2 08/18/20 19:21 98.1 Room Air (ASHELY POSADAS APRN) EKG: EKG: Sinus rhythm, normal EKG. HR 94 bpm. Intervals normal. [place] normal. Read by Dr. Craven. [] (ASHELY POSADAS APRN) Radiology/Procedures: Radiology/Procedures: []XR CHEST 1V History: Reason: CP / Spl. Instructions: / History: Comparison: December 10, 2015 Findings: No consolidation or pleural effusion. Normal heart size. No pneumothorax. Impression: 1. No acute cardiopulmonary process. Electronically signed by: Edward Daniel DO (08/18/2020 8:28 PM) [facility] (ASHELY POSADAS APRN) Heart Score: HEART Score for Chest Pain: HEART Score for Chest Pain Response (Comments) Value History Slighlty/Non-Suspicious 0 ECG Normal 0 Age >45 - < 65 1 Risk Factors No Risk Factors 0 Troponin < Normal Limit 0 Total 1 Risk Factors: Risk Factors: DM, Current or recent (<one month) smoker, HTN, HLP, family history of CAD, obesity. Risk Scores: Score 0 - 3: 2.5% MACE over next 6 weeks - Discharge Home Score 4 - 6: 20.3% MACE over next 6 weeks - Admit for Clinical Observation Score 7 - 10: 72.7% MACE over next 6 weeks - Early Invasive Strategies (ASHELY POSADAS APRN) Course & Med Decision Making: Course & Med Decision Making Pertinent Labs and Imaging studies reviewed. (See chart for details) []Patient is a 50-year-old female who presents with epigastric chest pressure that started at 6 PM tonight. Patient states that she was at work standing and talking to coworkers when she started having the pain and nausea. Patient states when she got home she began vomiting. Patient states "I have been feeling a little off balance for the last couple of weeks". Patient denies shortness of breath or pain radiation. Pain unchanged with position changes. Denies taking anything at home prior to arrival. Chest x-ray negative for acute abnormality. Heart score of 1. 324 of aspirin given. Patient states that she is still having midsternal chest pain. 4 mg of morphine ordered. Troponin is negative. EKG shows sinus rhythm, heart rate 94 bpm. Transfer of patient care to Dr. Craven (ASHELY POSADAS APRN) Course & Med Decision Making Patient is a 50-year-old female presented with chest discomfort. Heart score of 1. Low risk [place]. PERC negative. 2 EKGs and 2 troponins normal. Pain controlled. Laboratory analysis normal. Discussed all findings with patient advised to follow-up first thing in the morning with her primary care physician to discuss her ED visit and set up a post ER follow-up visit as soon as possible. Patient grateful, verbalized understanding and agreed with plan of discharge. (MARBIN CRAVEN MD) Dragon Disclaimer: Dragon Disclaimer: This electronic medical record was generated, in whole or in part, using a voice recognition dictation system. (ASHELY POSADAS APRN) Departure Departure: Impression: Primary Impression: Chest pain Qualified Codes: R07.9 - Chest pain, unspecified Disposition: 01 DC HOME SELF CARE/HOMELESS Referrals: TIRSO SCRUGGS (PCP) ASHELY POSADAS APRN Aug 18, 2020 20:45 MARBIN CRAVEN MD Aug 18, 2020 23:57
[2020-08-18 20:52] LABS: ALBUMIN 3.6 g/dL (3.4-5.0); ALBUMIN/GLOBULIN RATIO 0.9 (1.0-1.7); ALK PHOS 87 U/L (46-116); ALT (SGPT) 28 U/L (14-59); AST (SGOT) 12 U/L (15-37); TOTAL BILIRUBIN 0.2 mg/dL (0.2-1.0); TOTAL PROTEIN 7.4 g/dL (6.4-8.2)
[2020-08-18 21:38] LABS: CLARITY,URINE CLEAR; COLOR,URINE COLORLESS; GLUCOSE,URINE NEG (NEG)
[2020-08-18 21:39] LABS: BACTERIA,URINE 0 /HPF (0-FEW); BILIRUBIN,URINE NEG (NEG); NITRITE,URINE NEG (NEG); RBC,URINE 0 /HPF (0-2); UROBILINOGEN,URINE 0.2 mg/dL (0.2 mg/dL); WBC,URINE 0 /HPF (0-4)
[2020-08-18] MEDS ORDERED: MORPHINE SULFATE 4 MG/ML DISP.SYRIN. IV ONE (21:45)
[2020-08-18] MEDS ORDERED: ASPIRIN CHEWABLE 81 MG TABLET. PO ONE (21:45)
--- NOTE | 2020-08-18 22:22 | EKG ---
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
--- NOTE | 2020-08-18 22:58 | EKG ---
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
[2020-08-18] MEDS ORDERED: LIDO:MAALOX 1:1 20 ML SINGLE DOSE. PO ONE (23:00)
[2020-08-18] MEDS ORDERED: KETOROLAC 15 MG/ML VIAL. IVP ONE (23:00)
== END 2020-08-19 00:25 | disposition home or self-care (01) ==
LOC: ER 19:21
DX: R07.89 Other chest pain (principal); R10.13 Epigastric pain; R11.2 Nausea with vomiting, unspecified; M19.90 Unspecified osteoarthritis, unspecified site; F17.210 Nicotine dependence, cigarettes, uncomplicated; Z90.49 Acquired absence of other specified parts of digestive tract; Z90.89 Acquired absence of other organs; Z98.890 Other specified postprocedural states; Z90.710 Acquired absence of both cervix and uterus; Z91.030 Bee allergy status
CPT/HCPCS: 36415; 71045; 80053; 81001; 82553; 83735; 83880; 84484; 85025; 85610; 93005; 96374; 96375; 99285; J1885; J2270; J2405

== ENCOUNTER 2020-09-09 10:46 | Emergency (ER) | payer OTHER ==
[~2020-09-09] VITALS: Ht 170.2 cm; Wt 81.0 kg
[2020-09-09 10:56] VITALS: BP 135/94
[2020-09-09] MEDS ORDERED: BENZONATATE 100 MG CAPSULE. PO ONE (11:45)
[2020-09-09] MEDS ORDERED: predniSONE 10 MG TABLET PO ONE (11:45)
--- NOTE | 2020-09-09 11:47 | PHYS DOC ---
Past History Past Medical History: Arthritis, Other Additional Past Medical Histor: ulcerative colitis Past Surgical History: Appendectomy, Cholecystectomy, , Hysterectomy, Knee Replacement, Tonsillectomy, Other Additional Past Surgical Histo: hip, knee surgeries, carpal tunnel raymundo, tummy tuck, lt knee replaced x2 Smoking: Cigarettes, Less than 1pk/day Alcohol Use: Occasionally Drug Use: None General Adult EDM: Chief Complaint: COUGH HPI: HPI: Patient is a 50-year-old female coming in for a cough productive of white phlegm. Patient has had some congestion and low-grade fevers. Says her temperature was 99 at home. States she had Covid swab done 10 days ago because she was having fevers. Was seen at [facility] and diagnosed with right otitis media has been taking amoxicillin. She still has a slight amount of ear pain but is getting better. Denies any vomiting or diarrhea. Review of Systems: Review of Systems: All other systems within normal limits except for as noted in the HPI Allergies: Allergies: Allergies Coded Allergies Type Severity Reaction Last Updated Verified venom-honey bee Allergy Severe SOA, Dizziness 02/17/20 Yes Physical Exam: PE: Constitutional: Well developed, well nourished, no acute distress, non-toxic appearance. [] HENT: Normocephalic, atraumatic, bilateral external ears normal, effusion behind right TM, left TM unremarkable. Oropharynx normal. Nose normal. No t enderness palpation over sinuses [] Eyes: PERRLA, conjunctiva normal, no discharge. [] Neck: No rigidity, supple, no stridor. No cervical lymphadenopathy [] Cardiovascular: Regular rate and rhythm, brisk cap refill [] Lungs & Thorax: Non labored symmetric respirations, no tachypnea or respiratory distress. Breath sounds clear to auscultation [] Abdomen: Soft, nondistended. Skin: Warm, dry, no erythema, no rash. [] Back: Unremarkable Extremities: No deformities, range of motion grossly intact, no lower extremity edema [] Neurologic: Alert and oriented X 3, no focal deficits noted. [] Psychologic: Affect normal, judgement normal, mood normal. [] Current Patient Data: Vital Signs: Vital Signs Date Time Temp Pulse Resp B/P (MAP) Pulse Ox O2 Delivery O2 Flow Rate FiO2 09/09/20 10:56 99.7 93 16 135/94 (108) 97 Room Air EKG: EKG: [] Radiology/Procedures: Radiology/Procedures: EXAM: Chest, 2 views. HISTORY: Pneumonia. COMPARISON: 08/18/2020 FINDINGS: 2 views of the chest are obtained. There is no infiltrate, protrusion or pneumothorax. The heart is normal in size. IMPRESSION: No acute pulmonary finding.[] Heart Score: C/O Chest Pain: No Risk Factors: Risk Factors: DM, Current or recent (<one month) smoker, HTN, HLP, family history of CAD, obesity. Risk Scores: Score 0 - 3: 2.5% MACE over next 6 weeks - Discharge Home Score 4 - 6: 20.3% MACE over next 6 weeks - Admit for Clinical Observation Score 7 - 10: 72.7% MACE over next 6 weeks - Early Invasive Strategies Course & Med Decision Making: Course & Med Decision Making Pertinent Labs and Imaging studies reviewed. (See chart for details) [] Dragon Disclaimer: Dragon Disclaimer: This electronic medical record was generated, in whole or in part, using a voice recognition dictation system. Departure Departure: Impression: Primary Impression: Bronchitis Disposition: 01 DC HOME SELF CARE/HOMELESS Condition: STABLE Referrals: TIRSO SCRUGGS (PCP) Patient Instructions: Acute Bronchitis Scripts Benzonatate (TESSALON PERLE) 100 Mg Capsule 1 CAP PO TID PRN for COUGH, #21 CAP Prov: MARY KEENE MD 09/09/20 Prednisone (PREDNISONE) 50 Mg Tablet 1 TAB PO DAILY for steroid, #4 TAB You received this medication in the emergency room today. You will starting your next dose tomorrow. Prov: MARY KEENE MD 09/09/20 MARY KEENE MD Sep 09, 2020 11:47
--- NOTE | 2020-09-09 12:52 | RAD ---
EXAM: Chest, 2 views. HISTORY: Pneumonia. COMPARISON: 08/18/2020 FINDINGS: 2 views of the chest are obtained. There is no infiltrate, protrusion or pneumothorax. The heart is normal in size. IMPRESSION: No acute pulmonary finding. Electronically signed by: Yokasta Snow MD (09/09/2020 12:50 PM) [id number]
[2020-09-09] MEDS ORDERED: BENZ100C PO (13:01)
[2020-09-09] MEDS ORDERED: PRED50TA PO (13:01)
== END 2020-09-09 13:07 | disposition home or self-care (01) ==
LOC: ER 10:46
DX: J40 Bronchitis, not specified as acute or chronic (principal); M19.90 Unspecified osteoarthritis, unspecified site; F17.210 Nicotine dependence, cigarettes, uncomplicated; Z91.030 Bee allergy status
CPT/HCPCS: 71046; 99283; J7512

== ENCOUNTER 2021-01-24 20:43 | Emergency (ER) | payer OTHER ==
[~2021-01-24] VITALS: Ht 170.2 cm; Wt 86.3 kg
[~2021-01-24 20:43] MED LIST changes: +BENZ100C PO; +PRED50TA PO
[2021-01-24] MEDS ORDERED: MORPHINE SULFATE 4 MG/ML DISP.SYRIN. IV ONE (21:00)
[2021-01-24] MEDS ORDERED: IV NORMAL SALINE 1,000ML 1,000 ML IV ONE (21:00)
[2021-01-24] MEDS ORDERED: ONDANSETRON PF 4 MG/2 ML VIAL. IVP ONE (21:00)
--- NOTE | 2021-01-24 21:16 | PHYS DOC ---
Past History Past Medical History: Arthritis, Other Additional Past Medical Histor: ulcerative colitis (ASHELY POSADAS APRN) Past Surgical History: Appendectomy, Cholecystectomy, , Hysterectomy, Knee Replacement, Tonsillectomy, Other Additional Past Surgical Histo: hip, knee surgeries, carpal tunnel raymundo, tummy tuck, lt knee replaced x2 (ASHELY POSADAS APRN) Smoking: Cigarettes, Less than 1pk/day Alcohol Use: Occasionally Drug Use: None (ASHELY POSADAS APRN) General Adult EDM: Chief Complaint: ABDOMINAL PAIN HPI: HPI: Patient is a 50-year-old female who presents with lower abdominal pain. Patient states "on ate a piece of pizza and later that night he felt like I had heartburn". "Since then I have been having diarrhea multiple times a day". Patient reports pain now in his lower abdomen and crampy. Patient states that she has a history of ulcerative colitis but was told this year by her GI doctor that that has resolved. Patient denies bloody stools. Denies nausea and vom iting. Denies fevers. Denies taking anything for cramping. Patient has history of arthritis and ulcerative colitis. (ASHELY POSADAS APRN) Review of Systems: Review of Systems: Constitutional: Denies fever or chills Eyes: Denies change in visual acuity HENT: Denies nasal congestion or sore throat Respiratory: Denies cough or shortness of breath Cardiovascular: Denies chest pain or edema GI: Reports lower abdominal pain and diarrhea. Denies nausea, vomiting, bloody stools : Denies dysuria Musculoskeletal: Denies back pain or joint pain Integument: Denies rash Neurologic: Denies headache, focal weakness or sensory changes Endocrine: Denies polyuria or polydipsia Lymphatic: Denies swollen glands Psychiatric: Denies depression or anxiety (ASHELY POSADAS APRN) Current Medications: Current Meds: Current Medications Medications (Trade) Dose Ordered Sig/Maya Start Time Stop Time Status Last Admin Dose Admin Morphine Sulfate (Morphine 4mg Syringe) 4 mg 1X ONCE 01/24/21 21:00 01/24/21 21:05 DC Ondansetron HCl (Zofran) 4 mg 1X ONCE 01/24/21 21:00 01/24/21 21:05 DC Sodium Chloride 1,000 ml @ 1,000 mls/hr 1X ONCE 01/24/21 21:00 01/24/21 21:59 (ASHELY POSADAS APRN) Allergies: Allergies: Allergies Coded Allergies Type Severity Reaction Last Updated Verified venom-honey bee Allergy Severe SOA, Dizziness 02/17/20 Yes (ASHELY POSADAS APRN) Physical Exam: PE: Constitutional: Well developed, well nourished, no acute distress, non-toxic appearance. [] HENT: Normocephalic, atraumatic, bilateral external ears normal, oropharynx moist, no oral exudates, nose normal. [] Eyes: PERRLA, EOMI, conjunctiva normal, no discharge. [] Neck: Normal range of motion, no tenderness, supple, no stridor. [] Cardiovascular:Heart rate regular rhythm, no murmur [] Lungs & Thorax: Bilateral breath sounds clear to auscultation [] Abdomen: Bowel sounds normal, soft, no tenderness, no masses, no pulsatile masses. [] Skin: Warm, dry, no erythema, no rash. [] Back: No tenderness, no CVA tenderness. [] Extremities: No tenderness, no cyanosis, no clubbing, ROM intact, no edema. [] Neurologic: Alert and oriented X 3, normal motor function, normal sensory function, no focal deficits noted. [] Psychologic: Affect normal, judgement normal, mood normal. [] (ASHELY POSADAS APRN) EKG: EKG: Sinus rhythm. Heart rate 82 bpm [] (ASHELY POSADAS APRN) Radiology/Procedures: Radiology/Procedures: []CT scan abdomen and pelvis without contrast 01/24/2021 CLINICAL HISTORY: Lower abdominal pain. TECHNIQUE: Unenhanced, contiguous, 2.5 mm axial sections were obtained through the abdomen and pelvis. One or more of the following individualized dose reduction techniques were utilized for this study: 1. Automated exposure control. 2. Adjustment of the mA and/or kV according to patient size. 3. Use of iterative reconstruction technique. FINDINGS: Comparison study is dated 03/30/2020. Images through the lung bases demonstrate minimal dependent subsegmental atele ctasis bilaterally. The liver, spleen, pancreas and adrenal glands are within normal limits. No renal or ureteral calculus is seen. There is no evidence of obstruction of either collecting system. The abdominal aorta tapers normally. Surgical clips are seen within the gallbladder fossa consistent with a cholecystectomy. No free fluid or free air is seen within the abdomen. Mildly dilated fluid-filled small bowel loops are seen within the lower abdomen extending into the pelvis without definite evidence of bowel obstruction. The appendix is not visualized. No inflammatory changes are seen surrounding the cecum. Images through the pelvis demonstrate the urinary bladder to be contracted. Calcifications are seen within the pelvis consistent with phleboliths. Very mild S-shaped curvature of the thoracolumbar spine is seen. Degenerative changes are seen involving the lower thoracic and throughout the lumbar spine along with both hips. IMPRESSION: Mildly dilated fluid-filled small bowel loops are seen within the lower abdomen/pelvis without definite evidence of bowel obstruction. No additional acute abnormality is seen. Electronically signed by: Soham Wiggins MD (01/24/2021 9:39 PM) [id number] (ASHELY POSADAS APRN) Heart Score: C/O Chest Pain: No Risk Factors: Risk Factors: DM, Current or recent (<one month) smoker, HTN, HLP, family history of CAD, obesity. Risk Scores: Score 0 - 3: 2.5% MACE over next 6 weeks - Discharge Home Score 4 - 6: 20.3% MACE over next 6 weeks - Admit for Clinical Observation Score 7 - 10: 72.7% MACE over next 6 weeks - Early Invasive Strategies (ASHELY POSADAS APRN) Course & Med Decision Making: Course & Med Decision Making Pertinent Labs and Imaging studies reviewed. (See chart for details) [] 50-year-old female presents with crampy, lower abdominal pain. Pain started on as epigastric burning which has now progressed to cramping. Patient has had multiple episodes of diarrhea. Patient states "I have a upper and lower GI done by Dr. Kwan earlier this year and was told that my ulcerative colitis had resolved". Patient is afebrile. (ASHELY POSADAS APRN) Course & Med Decision Making Did not see or evaluate patient. Agree with [employer]'s work-up and disposition per note. (MARBIN CRAVEN MD) Dragon Disclaimer: Dragon Disclaimer: This electronic medical record was generated, in whole or in part, using a voice recognition dictation system. (ASHELY POSADAS APRN) Departure Departure: Impression: Primary Impression: Abdominal pain Qualified Codes: R10.84 - Generalized abdominal pain Additional Impression: Diarrhea Qualified Codes: R19.7 - Diarrhea, unspecified Disposition: 01 HOME / SELF CARE / HOMELESS Condition: STABLE Referrals: TIRSO SCRUGGS (PCP) Patient Instructions: Diarrhea Additional Instructions: You were seen in the emergency room for diarrhea and abdominal pain. CT of your abdomen was negative. Please follow-up with your PCP if symptoms continue. Please return to the emergency room if you have worsening symptoms or concerns. EMERGENCY DEPARTMENT GENERAL DISCHARGE INSTRUCTIONS Thank you for coming to [facility] (ED) today and trusting us with you care. We trust that you had a positivie experience in our Emergency Department. If you wish to speak to the department management, you may call the director at [phone]. YOUR FOLLOW UP INSTRUCTIONS ARE FOLLOWS: 1. Do you have a private Doctor? If you do not have a private doctor, please ask for a resource list of physicians or clinics that may be able to assist you with follow up care. 2. The Emergency Physician has interpreted your x-rays. The X-Ray specialist will also review them. If there is a change in the findings, you will be notified in 48 hours when at all possible. 3. A lab test or culture has been done, your results will be reviewed and you will be notified if you need a change in treatment. ADDITIONAL INSTRUCTIONS AND INFORMATION: 1. Your care today has been supervised by a physician who is specially trained in emergency care. Many problems require more than one evaluation for a complete diagnosis and treatment. We recommend that you schedule your follow up appointment as recommended to ensure complete treatment of you illness or injury. If you are unable to obtain follow up care and continue to have a problem, or if your condition worsens, we recommend that you return to the ED. 2. We are not able to safely determine your condition over the phone nor are we able to give sound medical advice over the phone. For these safety reasons, if you call for medical advice we will ask you to come to the ED for further evaluation. 3. If you have any questions regarding these discharge instructions please call the ED at [phone]. SAFETY INFORMATION: In the interest of safety, wellness, and injury prevention; we encourage you to wear your sealbelt, if you smoke; quite smoking, and we encourage family to use a protective helmet for bicycling and other sporting events that present an increased risk for head injury. IF YOUR SYMPTOMS WORSEN OR NEW SYMPTOMS DEVELOP, OR YOU HAVE CONCERNS ABOUT YOUR CONDITION; OR IF YOUR CONDITION WORSENS WHILE YOU ARE WAITING FOR YOUR FOLLOW UP APPOINTMENT; EITHER CONTACT YOUR PRIMARY CARE DOCTOR, THE PHYSICIAN WHOSE NAME AND NUMBER YOU WERE GIVEN, OR RETURN TO THE ED IMMEDIATELY. ASHELY POSADAS APRN Jan 24, 2021 21:16 MARBIN CRAVEN MD Jan 24, 2021 23:29
[2021-01-24] MEDS ORDERED: PROCHLORPERAZINE 10 MG/2 ML VIAL. ONE (21:18)
[2021-01-24 21:29] LABS: BASO % 0 % (0-3); EOS # 0.4 x10^3/uL (0.0-0.7); EOS % 5 % (0-3); HEMATOCRIT 37.8 % (36.0-47.0); HEMOGLOBIN 13.3 g/dL (12.0-15.5); LYMPH # 2.5 x10^3/uL (1.0-4.8); LYMPH % 32 % (24-48); MEAN CORPUSCULAR HEMOGLOBIN 33 pg (25-35); MEAN CORPUSCULAR HGB CONC 35 g/dL (31-37); MEAN CORPUSCULAR VOLUME 93 fL (79-100); MONO # 0.7 x10^3/uL (0.0-1.1); MONO % 9 % (0-9); NEUT # 4.4 x10^3uL (1.8-7.7); NEUT % 55 % (31-73); PLATELET COUNT 225 x10^3/uL (140-400); RED BLOOD COUNT 4.06 x10^6/uL (3.50-5.40); RED CELL DISTRIBUTION WIDTH 12.6 % (11.5-14.5)
[2021-01-24] MEDS ORDERED: PROCHLORPERAZINE 10 MG/2 ML VIAL. IV ONE (21:30)
[2021-01-24 21:37] LABS: BILIRUBIN,URINE NEG (NEG); CLARITY,URINE CLEAR; COLOR,URINE YELLOW; GLUCOSE,URINE NEG (NEG); NITRITE,URINE NEG (NEG); UROBILINOGEN,URINE 0.2 mg/dL (0.2 mg/dL)
[2021-01-24 21:38] LABS: CALCIUM 8.6 mg/dL (8.5-10.1); CREATININE 1.1 mg/dL (0.6-1.0); GFR 52.6; POTASSIUM 3.2 mmol/L (3.5-5.1)
--- NOTE | 2021-01-24 21:41 | RAD ---
CT scan abdomen and pelvis without contrast 01/24/2021 CLINICAL HISTORY: Lower abdominal pain. TECHNIQUE: Unenhanced, contiguous, 2.5 mm axial sections were obtained through the abdomen and pelvis . One or more of the following individualized dose reduction techniques were utilized for this study: 1. Automated exposure control. 2. Adjustment of the mA and/or kV according to patient size. 3. Use of iterative reconstruction technique. FINDINGS: Comparison study is dated 03/30/2020. Images through the lung bases demonstrate minimal dependent subsegmental atelectasis bilaterally. The liver, spleen, pancreas and adrenal glands are within normal limits. No renal or ureteral calculu s is seen. There is no evidence of obstruction of either collecting system. The abdominal aorta tapers normally. Surgical clips are seen within the gallbladder fossa consistent with a cholecystectomy. No free fluid or free air is seen within the abdomen. Mildly dilated fluid-fi lled small bowel loops are seen within the lower abdomen extending into the pelvis without definite e vidence of bowel obstruction. The appendix is not visualized. No inflammatory changes are seen surrou nding the cecum. Images through the pelvis demonstrate the urinary bladder to be contracted. Calcifications are seen w ithin the pelvis consistent with phleboliths. Very mild S-shaped curvature of the thoracolumbar spine is seen. Degenerative changes are seen involving the lower thoracic and throughout the lumbar spine along with both hips. IMPRESSION: Mildly dilated fluid-filled small bowel loops are seen within the lower abdomen/pelvis wi thout definite evidence of bowel obstruction. No additional acute abnormality is seen. Electronically signed by: Soham Wiggins MD (01/24/2021 9:39 PM) [id number]
[2021-01-24 21:42] LABS: BACTERIA,URINE 0 /HPF (0-FEW); RBC,URINE 0 /HPF (0-2); SQUAMOUS EPITHELIAL CELL,UR OCC /LPF; WBC,URINE 0 /HPF (0-4)
[2021-01-24 21:43] LABS: ALBUMIN 3.6 g/dL (3.4-5.0); ALBUMIN/GLOBULIN RATIO 1.1 (1.0-1.7); TOTAL BILIRUBIN 0.6 mg/dL (0.2-1.0); TOTAL PROTEIN 6.9 g/dL (6.4-8.2)
[2021-01-24 22:10] VITALS: BP 135/78
--- NOTE | 2021-01-26 11:18 | EKG ---
[address] [address] Test Date: 2021-01-24 Test Time: 21:05:40 Pat Name: TAWANA DIEHL Department: Room: Gender: F [employer]: : 1970 Requested By: ASHELY POSADAS Order Number: [id number] Reading MD: Measurements Intervals [place] Rate: 82 P: 0 WA: 112 QRS: 7 QRSD: 90 T: 34 QT: 404 QTc: 475 Interpretive Statements SINUS RHYTHM PROLONGED QT NO SPECIFIC ECG ABNORMALITIES RI6.02 No previous ECG available for comparison
== END 2021-01-24 22:15 | disposition home or self-care (01) ==
LOC: ER 20:43
DX: R10.30 Lower abdominal pain, unspecified (principal); R19.7 Diarrhea, unspecified; F17.210 Nicotine dependence, cigarettes, uncomplicated; Z90.49 Acquired absence of other specified parts of digestive tract; Z90.710 Acquired absence of both cervix and uterus
CPT/HCPCS: 36415; 74176; 80053; 81001; 85025; 93005; 96361; 96374; 96375; 99285; J0780; J2270; J7030

== ENCOUNTER 2021-04-08 11:46 | Emergency (ER) | payer OTHER ==
[~2021-04-08] VITALS: Ht 170.2 cm; Wt 86.9 kg
[2021-04-08 11:52] VITALS: BP 142/89
--- NOTE | 2021-04-08 12:06 | PHYS DOC ---
Past History Past Medical History: Arthritis, Other Additional Past Medical Histor: ulcerative colitis; diverticulosis (DESIREE BANUELOS APRN) Past Surgical History: Appendectomy, Cholecystectomy, , Hysterectomy, Knee Replacement, Tonsillectomy, Other Additional Past Surgical Histo: hip, knee surgeries, carpal tunnel raymundo, tummy tuck, lt knee replaced x2 (DESIREE BANUELOS APRN) Smoking: Cigarettes, Less than 1pk/day Alcohol Use: Rarely Drug Use: None (DESIREE BANUELOS APRN) General Adult EDM: Chief Complaint: LOWER EXT PAIN HPI: HPI: Patient is a 50-year-old female who presents with right foot pain. Patient states she noticed the pain on Tuesday evening after feeling a pop in her right lateral foot. Patient does not recall an injury to that foot directly. 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 Patient states that she has a history of a hairline fracture in her right foot but does not recall where she states she did wear a boot and it did heal over time. (DESIREE BANUELOS APRN) Review of Systems: Review of Systems: Constitutional: Denies fever or chills Eyes: Denies change in visual acuity HENT: Denies nasal congestion or sore throat Respiratory: Denies cough or shortness of breath Cardiovascular: Denies chest pain or edema GI: Denies abdominal pain, nausea, vomiting, bloody stools or diarrhea : Denies dysuria Musculoskeletal: right foot pain Integument: Denies rash Neurologic: Denies headache, focal weakness or sensory changes Endocrine: Denies polyuria or polydipsia Lymphatic: Denies swollen glands Psychiatric: Denies depression or anxiety (DESIREE BANUELOS APRN) Current Medications: Current Meds: Current Medications Medications (Trade) Dose Ordered Sig/Maya Start Time Stop Time Status Last Admin Dose Admin Ibuprofen (Motrin) 600 mg 1X ONCE 04/08/21 12:00 04/08/21 12:01 UNV (DESIREE BANUELOS APRN) Allergies: Allergies: Allergies Coded Allergies Type Severity Reaction Last Updated Verified venom-honey bee Allergy Severe SOA, Dizziness 01/24/21 Yes (DESIREE BANUELOS APRN) Physical Exam: PE: Constitutional: Well developed, well nourished, no acute distress, non-toxic appearance. [] HENT: Normocephalic, atraumatic, bilateral external ears normal, oropharynx moist, no oral exudates, nose normal. [] Eyes: PERRLA, EOMI, conjunctiva normal, no discharge. [] Neck: Normal range of motion, no tenderness, supple, no stridor. [] Cardiovascular:Heart rate regular rhythm, no murmur [] Lungs & Thorax: Bilateral breath sounds clear to auscultation [] Abdomen: Bowel sounds normal, soft, no tenderness, no masses, no pulsatile masses. [] Skin: Warm, dry, no erythema, no rash. [] Back: No tenderness, no CVA tenderness. [] Extremities: right foot pain lateral over 5th metatarsel with palpation, swelling noted lateral foot. DP and PT 2+ in right foot. Neurologic: Alert and oriented X 3, normal motor function, normal sensory function, no focal deficits noted. [] Psychologic: Affect normal, judgement normal, mood normal. [] (DESIREE BANUELOS APRN) Current Patient Data: Vital Signs: Vital Signs Date Time Temp Pulse Resp B/P (MAP) Pulse Ox O2 Delivery O2 Flow Rate FiO2 04/08/21 11:52 97.9 81 18 142/89 (106) 98 Room Air (DESIREE BANUELOS APRN) EKG: EKG: [] (DESIREE BANUELOS APRN) Radiology/Procedures: Radiology/Procedures: FOOT RIGHT 3V 3 views right foot 04/08/2021 12:15 PM Indication: Reason: foot pain and swelling / Spl. Instructions: / History: Comparison: None Findings: There is no acute fracture or dislocation. Articular surfaces are uninterupted and smooth. Soft tissues are unremarkable. Impression: No evidence of acute osseous abnormality. Electronically signed by: John Muro MD (04/08/2021 12:29 PM) [id number] (DESIREE BANUELOS APRN) Heart Score: C/O Chest Pain: N/A Risk Factors: Risk Factors: DM, Current or recent (<one month) smoker, HTN, HLP, family history of CAD, obesity. Risk Scores: Score 0 - 3: 2.5% MACE over next 6 weeks - Discharge Home Score 4 - 6: 20.3% MACE over next 6 weeks - Admit for Clinical Observation Score 7 - 10: 72.7% MACE over next 6 weeks - Early Invasive Strategies (DESIREE BANUELOS APRN) Course & Med Decision Making: Course & Med Decision Making Pertinent Labs and Imaging studies reviewed. (See chart for details Foot x-ray negative for fracture, will place patient in postop shoe for comfort, patient to follow-up with primary care physician in 2 to 3 days if not improving. Tylenol and/or ibuprofen as needed for pain. Ice and elevate 20 minutes on 3-4 times daily. Patient discharged home in stable condition (DESIREE BANUELOS APRN) Dragon Disclaimer: Dragon Disclaimer: This electronic medical record was generated, in whole or in part, using a voice recognition dictation system. (DESIREE BANUELOS APRN) Attending Co-Sign The patient was seen and interviewed as well as examined at the bedside. The chart was reviewed. The case was discussed. Agree with the plan of care. (CHAKA LEDESMA DO) Departure Departure: Impression: Primary Impression: Strain of foot Qualified Codes: S96.911A - Strain of unspecified muscle and tendon at ankle and foot level, right foot, initial encounter Disposition: HOME / SELF CARE / HOMELESS Condition: STABLE Referrals: TIRSO SCRUGGS (PCP) Patient Instructions: Foot Contusion Additional Instructions: Wear postop shoe for comfort Tylenol and/or ibuprofen as labeled directed for pain Follow-up with primary care physician in 2 to 3 days if not improving Ice and elevate 20 minutes on 3-4 times daily for the next 24 to 48 hours. DESIREE BANUELOS APRN Apr 08, 2021 12:06 CHAKA LEDESMA DO Apr 08, 2021 17:33
[2021-04-08] MEDS: IBUPROFEN 600 MG TABLET. PO ONE (12:12)
--- NOTE | 2021-04-08 12:31 | RAD ---
3 views right foot 04/08/2021 12:15 PM Indication: Reason: foot pain and swelling / Spl. Instructions: / History: Comparison: None Findings: There is no acute fracture or dislocation. Articular surfaces are uninterupted and smooth. Soft tissues are unremarkable. Impression: No evidence of acute osseous abnormality. Electronically signed by: John Muro MD (04/08/2021 12:29 PM) [id number]
== END 2021-04-08 12:46 | disposition home or self-care (01) ==
LOC: ER 11:55
DX: S96.911A Strain of unspecified muscle and tendon at ankle and foot level, right foot, initial encounter (principal); M19.90 Unspecified osteoarthritis, unspecified site; F17.210 Nicotine dependence, cigarettes, uncomplicated; Z91.030 Bee allergy status; X50.9XXA Other and unspecified overexertion or strenuous movements or postures, initial encounter; Y93.89 Activity, other specified; Y92.89 Other specified places as the place of occurrence of the external cause; Y99.8 Other external cause status
CPT/HCPCS: 73630; 99283